=== PATIENT | male | born 1975 | race Two or more races ===

== ENCOUNTER 2019-03-01 11:07 | Emergency (ER) | payer MEDICAID ==
[~2019-03-01] VITALS: Ht 157.5 cm; Wt 51.6 kg
[2019-03-01 11:19] VITALS: Ht 157.5 cm; Wt 51.6 kg
[2019-03-01] MEDS ORDERED: SOD CHLORIDE 0.9% 520 ML IV ONE (12:30)
--- NOTE | 2019-03-01 12:30 | ERD ---
ER Documentation Chief Complaint Chief Complaint weak & fatigue insulin dependent, no meds 2yrs BS 517 HPI 43-year-old male with a history of insulin-dependent diabetes presents to the ED complaining of fatigue and hyperglycemia. He has been noncompliant with his medications for over 2 years due to lack of insurance and availability of medications. Denies headache or neck pain. No chest pain, palpitations or shortness of breath. Denies abdominal pain, nausea, vomiting, diarrhea or constipation. No URI symptoms or cough. No ataxia, weight loss, fevers or chills. ROS All systems reviewed and are negative except as per history of present illness. Allergies Allergies: Coded Allergies: No Known Allergy (Unverified , 03/01/19) PMhx/Soc Medical and Surgical Hx: pt denies Surgical Hx History of Surgery: No Anesthesia Reaction: No Hx Neurological Disorder: No Hx Respiratory Disorders: No Hx Cardiac Disorders: No Hx Psychiatric Problems: No Hx Miscellaneous Medical Probl: No Hx Alcohol Use: Yes (socially) Hx Substance Use: No Hx Tobacco Use: Yes (socially) Smoking Status: Current some day smoker FmHx No family history relevant to presenting complaint Physical Exam Vitals Vital Signs Date Temp Pulse Resp B/P (MAP) Pulse Ox O2 O2 Flow FiO2 Time Delivery Rate 03/01/19 98.6 76 18 144/95 95 Room Air 12:23 (111) 03/01/19 99.0 89 18 190/94 99 11:19 (126) Physical Exam Const: No acute distress Head: Atraumatic Eyes: Normal Conjunctiva ENT: Normal External Ears, Nose and Mouth. Neck: Full range of motion. No meningismus. Resp: Clear to auscultation bilaterally Cardio: Regular rate and rhythm, no murmurs Abd: Soft, non tender, non distended. Normal bowel sounds Skin: No petechiae or rashes Back: No midline or flank tenderness Ext: No cyanosis, or edema Neur: Awake and alert Psych: Normal Mood and Affect Result Diagram: 03/01/19 1217 03/01/19 1217 Results 24 hrs Laboratory Tests Test 03/01/19 11:18 03/01/19 12:11 03/01/19 12:17 03/01/19 12:21 Bedside Glucose 517 mg/dL 477 mg/dL White Blood 4.8 10^3/ul Count Red Blood Count 5.08 10^6/ul Hemoglobin 13.3 g/dl Hematocrit 41.7 % Mean Corpuscular 82.1 fl Volume Mean Corpuscular 26.2 pg Hemoglobin Mean Corpuscular 31.9 g/dl Hemoglobin Rajwinder nt Red Cell 13.6 % Distribution Width Platelet Count 235 10^3/UL Mean Platelet 11.0 fl Volume Immature 0.200 % Granulocytes % Neutrophils % 65.0 % Lymphocytes % 25.9 % Monocytes % 7.5 % Eosinophils % 0.6 % Basophils % 0.8 % Nucleated Red 0.0 /100WBC Blood Cells % Immature 0.010 10^3/ul Granulocytes # Neutrophils # 3.1 10^3/ul Lymphocytes # 1.3 10^3/ul Monocytes # 0.4 10^3/ul Eosinophils # 0.0 10^3/ul Basophils # 0.0 10^3/ul Nucleated Red 0.0 10^3/ul Blood Cells # Urine Color COLORLESS Urine Clarity CLEAR Urine pH 7.0 Urine Specific 1.029 [place] Urine Ketones NEGATIVE mg/dL Urine Nitrite NEGATIVE mg/dL Urine Bilirubin NEGATIVE mg/dL Urine NEGATIVE mg/dL Urobilinogen Urine Leukocyte NEGATIVE Katie/ul Esterase Urine Hemoglobin NEGATIVE mg/dL Urine Glucose 3+ mg/dL Urine Total NEGATIVE mg/dl Protein Sodium Level 136 mmol/L Potassium Level 4.9 mmol/L Chloride Level 99 mmol/L Carbon Dioxide 29 mmol/L Level Anion Gap 8 Blood Urea 19 mg/dl Nitrogen Creatinine 0.70 mg/dl Est Glomerular > 60 mL/min Filtrat Rate mL/min Glucose Level 456 mg/dl Calcium Level 9.1 mg/dl Phosphorus Level 3.2 mg/dl Magnesium Level 1.8 mg/dl Blood Gas Blood venous Specimen Source Arterial Blood 03/01/2019 12:54 Date Drawn :07 PM Arterial Blood OTHER Gas Puncture Site Calvin Test N/A Venous Blood pH 7.375 Venous Blood 48.0 mmHG pCO2 (Temp Corrected) Venous Blood pO2 38.7 mmHG (Temp Corrected) Venous Blood 27.4 mmol/L HCO3 Venous Blood 72.8 mmHG Oxygen Saturation Venous Blood 1.6 mmol/L Base Excess Venous Blood 14.2 g/dl Total Hemoglobin Venous Blood 70.0 % Oxyhemoglobin Venous Blood 0.1 % Methemoglobin Blood Gas A-a O2 53.6 mmHg Differential Carboxyhemoglobi 3.8 % n Blood Gas 37.0 C Temperature Blood Gas ROOM AIR Modality FiO2 21.0 % Blood Gas MDA Notified Whom Blood Gas 03/01/2019 12:56 Notified Time :46 PM Test 03/01/19 13:33 Bedside Glucose 393 mg/dL Current Medications Medications Dose Sig/Cruzito Start Time Status Last (Trade) Ordered Route PRN Stop Time Admin Dose Reason Admin Sodium 520 ml @ ONCE ONCE 03/01/19 DC 03/01/19 Chloride 520 mls/hr IV 12:30 12:34 03/01/19 13:29 Procedures/MDM DOCUMENTS REVIEWED: ED nurse, prior records MEDICAL DECISION MAKIN-year-old male with a history of insulin-dependent diabetes presents to the ED complaining of fatigue and hyperglycemia. Patient is noncompliant with his medications for over 2 years due to lack of insurance but recently got Medi-Neo. CBC reveals mild anemia but no leukocytosis or thrombocytopenia. Chemistry remarkable for hyperglycemia but no electrolyte abnormalities or anion gap acidosis. Venous blood gas reveals no acidosis. P atient presents with diabetes out of control secondary to noncompliance without evidence of DKA or HHS. Hyperglycemia improved with intravenous hydration. Patient will be restarted on his metformin but as it does not know his insulin dosing will need to follow-up for further medication adjustment with his primary care physician. Stable for discharge with precautionary instructions and outpatient follow-up as counseled. Counseled patient regarding diagnostic workup, diagnosis and need for followup. Understands to return to ED if symptoms recur, worsen or any other concerns. Departure Diagnosis: Primary Impression: Diabetes mellitus out of control Diabetes mellitus type: type 2 Glycemic state: with hyperglycemia Qualified Codes: E11.65 - Type 2 diabetes mellitus with hyperglycemia Additional Impression: Noncompliance with diabetes treatment Condition: Stable (Improved) ISABELL VALDEZ MD March 01, 2019 12:30
[2019-03-01 14:51] VITALS: BP 144/93; PULSE 57; RESP 18
[2019-03-01] MEDS ORDERED: MTF1000T PO (15:22)
== END 2019-03-01 15:57 | disposition home or self-care (01) ==
LOC: E/R 11:07
DX: E11.65 Type 2 diabetes mellitus with hyperglycemia (principal); F17.210 Nicotine dependence, cigarettes, uncomplicated
CPT/HCPCS: 36415; 80048; 81003; 82803; 82962; 83735; 84100; 85025; J7030; Z7502